=== PATIENT | female | born 1990 | race Hispanic/Latino ===

== ENCOUNTER 2019-08-26 18:35 | Emergency (ER) | payer BC, OTHER ==
[2019-08-26 19:57] LABS: Urine Blood 3+ (NEG); Urine Glucose NEGATIVE (NEG); Urine Protein 2+ (NEG); Urine Specific Gravity 1.025 (1.005-1.030)
[2019-08-26 21:41] LABS: Urine Bacteria >50 /HPF (<20); Urine Culture Reflex Order NOT NEEDED; Urine Mucus HEAVY /HPF (NONE SEEN); Urine RBC TNTC /HPF (NONE SEEN)
[2019-08-26 21:53] LABS: Absolute Lymphocytes (CBC) 1.3 K/uL (0.7-4.9); Basophils % 0.2 % (0-1.3); Hematocrit 41.1 % (36.0-45.0); Lymphocytes % 13.9 % (15.3-44.8); MPV 10.8 fL (7.6-11.3); RBC Red Blood Cell Count 4.38 M/uL (3.86-4.86)
[2019-08-26 22:20] LABS: BUN Blood Urea Nitrogen 8 mg/dL (7-18); Bicarbonate 23 mmol/L (21-32); Glucose Level 101 mg/dL (74-106); HCG, Quantitative 25835 mIU/mL (1-3); Potassium 3.7 mmol/L (3.5-5.1); Sodium Level 140 mmol/L (136-145)
--- NOTE | 2019-08-26 23:48 | EDPHYS ---
Physician Documentation [facility] Name: Christopher Phipps Age: 29 yrs Sex: Female : 1990 Arrival Date: 08/26/2019 Time: 18:38 Bed 6 Private MD: ED Physician Hernesto Ybarra HPI: 08/25 20:56 This 29 yrs old Female presents to ER via Ambulatory with complaints of Back mh7 Pain, Pelvic Pain, 18 wks Preg. 20:57 The patient complains of pain in the left flank. The pain radiates to the pelvis. mh7 Onset: The symptoms/episode began/occurred today. Modifying factors: The symptoms are alleviated by nothing. the symptoms are aggravated by nothing. Associated signs and symptoms: Pertinent negatives: diarrhea, dizziness, dysuria, fever, urinary frequency, headache, hematuria, nausea, pain radiating to the lower extremities, vomiting. Severity of pain: At its worst the pain was moderate today, in the emergency department the pain has improved markedly. 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 - Social history:: Smoking status: Patient denies any tobacco usage or history of. ROS: 20:57 Constitutional: Negative for fever, chills, and weight loss, Eyes: Negative for injury, mh7 pain, redness, and discharge, ENT: Negative for injury, pain, and discharge, Neck: Negative for injury, pain, and swelling, Cardiovascular: Negative for chest pain, palpitations, and edema, Respiratory: Negative for shortness of breath, cough, wheezing, and pleuritic chest pain, : Negative for injury, bleeding, discharge, and swelling, MS/Extremity: Negative for injury and deformity, Skin: Negative for injury, rash, and discoloration, Neuro: Negative for headache, weakness, numbness, tingling, and seizure, Psych: Negative for depression, anxiety, suicide ideation, homicidal ideation, and hallucinations, Allergy/Immunology: Negative for hives, rash, and allergies, Endocrine: Negative for neck swelling, polydipsia, polyuria, polyphagia, and marked weight changes, Hematologic/Lymphatic: Negative for swollen nodes, abnormal bleeding, and unusual bruising. Exam: 20:57 Constitutional: This is a well developed, well nourished patient who is awake, alert, mh7 and in no acute distress. Head/Face: Normocephalic, atraumatic. Eyes: Pupils equal round and reactive to light, extra-ocular motions intact. Lids and lashes normal. Conjunctiva and sclera are non-icteric and not injected. Cornea within normal limits. Periorbital areas with no swelling, redness, or edema. ENT: Nares patent. No nasal discharge, no septal abnormalities noted. Tympanic membranes are normal and external auditory canals are clear. Oropharynx with no redness, swelling, or masses, exudates, or evidence of obstruction, uvula midline. Mucous membranes moist. Neck: Trachea midline, no thyromegaly or masses palpated, and no cervical lymphadenopathy. Supple, full range of motion without nuchal rigidity, or vertebral point tenderness. No Meningismus. Chest/axilla: Normal chest wall appearance and motion. Nontender with no deformity. No lesions are appreciated. Cardiovascular: Regular rate and rhythm with a normal S1 and S2. No gallops, murmurs, or rubs. Normal PMI, no JVD. No pulse deficits. Respiratory: Lungs have equal breath sounds bilaterally, clear to auscultation and percussion. No rales, rhonchi or wheezes noted. No increased work of breathing, no retractions or nasal flaring. Abdomen/GI: Soft, non-tender, with normal bowel sounds. No distension or tympany. No guarding or rebound. No evidence of tenderness throughout. 20:57 Skin: Warm, dry with normal turgor. Normal color with no rashes, no lesions, and no evidence of cellulitis. MS/ Extremity: Pulses equal, no cyanosis. Neurovascular intact. Full, normal range of motion. Neuro: Awake and alert, GCS 15, oriented to person, place, time, and situation. Cranial nerves II-XII grossly intact. Motor strength 5/5 in all extremities. Sensory grossly intact. Cerebellar exam normal. Normal gait. Psych: Awake, alert, with orientation to person, place and time. Behavior, mood, and affect are within normal limits. 20:57 Back: pain, is absent, ROM is normal, normal spinal alignment noted, CVA tenderness, that is mild, is noted on the left, muscle spasm, is not present. 20:57 : CVA tenderness, on the left, Pelvic Exam: The exam is refused by the patient/guardian. The risks and consequences are understood by the patient, Bladder: is normal. Vital Signs: 19:06 BP 102 / 72; Pulse 75; Resp 16 S; Temp 97.3(TE); Pulse Ox 100% on R/A; Weight 64.41 kg ca1 (R); Height 5 ft. 1 in. (154.94 cm) (R); Pain 6/10; 20:30 BP 115 / 78; Pulse 80; Resp 17; Pulse Ox 99% ; rr5 21:30 BP 106 / 61; Pulse 75; Resp 19; Pulse Ox 100% ; rr5 22:14 BP 110 / 85; Pulse 81; Resp 18; Pulse Ox 100% on R/A; rv 23:30 BP 114 / 70; Pulse 79; Resp 17; Temp 98; Pulse Ox 98% ; rr5 19:06 Body Mass Index 26.83 (64.41 kg, 154.94 cm) ca1 MDM: 20:45 Patient medically screened. [facility] 23:46 Differential diagnosis: nephrolithiasis, pyelonephritis, UTI. Data reviewed: [facility] signs, nurses notes, lab test result(s), Beta HCG: CBC, electrolytes, Rh: urinalysis. Data interpreted: Pulse oximetry: on room air is 100 %. Interpretation: normal. Counseling: I had a detailed discussion with the patient and/or guardian regarding: the historical points, exam findings, and any diagnostic results supporting the discharge/admit diagnosis, lab results, radiology results, the need for outpatient follow up, to return to the emergency department if symptoms worsen or persist or if there are any questions or concerns that arise at home. Response to treatment: the patient's symptoms have resolved after treatment, the patient's blood pressure is in an acceptable range, mental status has returned to baseline, the patient no longer shows bradycardia, the patient is not short of breath, the patient is not tachycardic, the patient's pain is gone, the patient's temperature has normalized. 08/25 18:40 Order name: Urine Culture snw 08/25 18:40 Order name: Urine Microscopic Only; Complete Time: 21:44 [facility] 08/25 19:51 Order name: Urine --Ancillary (enter results); Complete Time: 20:45 08/25 19:51 Order name: Urine Dipstick--Ancillary (enter results); Complete Time: 20:45 08/25 20:47 Order name: CBC with Diff; Complete Time: 22:29 [facility] 08/25 18:40 Order name: Urine Test (obtain specimen); Complete Time: 20:26 [facility] 08/25 18:40 Order name: Urine Dipstick-Ancillary (obtain specimen); Complete Time: 20:26 [facility] 08/25 20:47 Order name: Basic Metabolic Panel; Complete Time: 22:29 08/25 20:47 Order name: Quantitative Hcg; Complete Time: 22:29 [facility] 08/25 20:47 Order name: US OB Limited [facility] 08/25 20:47 Order name: US Abdomen Limited [facility] 08/25 20:48 Order name: Abo/rh Typing; Complete Time: 22:29 [facility] 08/25 21:04 Order name: GC (Micheal/Chl) Probe URINE EDMS Administered Medications: No medications were administered Disposition: 08/26/19 23:47 Discharged to Home. Impression: Flank Pain, . - Condition is Stable. - Discharge Instructions: Abdominal Pain During , [id number], Flank Pain, [id number]. - Medication Reconciliation Form, Thank You Letter, Antibiotic Education, Prescription Opioid Use form. - Follow up: Private Physician; When: 2 - 3 days; Reason: Worsening of condition, Recheck today's complaints, Re-evaluation by your physician. - Problem is an acute exacerbation. - Symptoms are resolved. Signatures: Dispatcher [employer] EDMS Phyllis Clark, SIENE MAKER-C SIENE MAKER-Csnw David Alatorre RN RN rr5 Mary Mann RN RN ca1 Hernesto Ybarra MD MD mh7 Corrections: (The following items were deleted from the chart) 21:04 18:41 GC (Gonorr/Clamydia) Probe+R.LAB.BRZ ordered. EDMS EDMS 23:59 23:47 08/26/2019 23:47 Discharged to Home. Impression: Flank Pain; . Condition rr5 is Stable. Forms are Medication Reconciliation Form, Thank You Letter, Antibiotic Education, Prescription Opioid Use. Follow up: Private Physician; When: 2 - 3 days; Reason: Worsening of condition, Recheck today's complaints, Re-evaluation by your physician. Problem is an acute exacerbation. Symptoms are resolved. mh7
--- NOTE | 2019-08-26 23:48 | ER ---
Nurse's Notes [facility] Name: Christopher Phipps Age: 29 yrs Sex: Female : 1990 Arrival Date: 08/26/2019 Time: 18:38 Bed 6 Private MD: Diagnosis: Flank Pain; Presentation: 08/25 19:06 Chief complaint: Patient states: Pain from Lower left side of my back that goes to the ca1 front . And I having sharp pain underneath my belly button area down to my vaginal area. My OB told me to come to the ER. 18 wks and 4 days. Denies vaginal bleeding. Denies urinary symptoms. 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 Coronavirus screen: Proceed with normal triage. Patient denies a cough. Patient denies shortness of breath or difficulty breathing. Patient denies measured and/or subjective temperature greater than 100.4F prior to today's visit. Patient denies travel on a cruise ship or to a country the [facility] currently lists as an affected area. Patient denies contact with known and/or suspected case of COVID-19. Ebola Screen: Patient negative for fever greater than or equal to 101.5 degrees Fahrenheit, and additional compatible Ebola Virus Disease symptoms Patient denies exposure to infectious person. Patient denies travel to an Ebola-affected area in the 21 days before illness onset. No symptoms or risks identified at this time. Initial Sepsis Screen: Does the patient meet any 2 criteria? No. Patient's initial sepsis screen is negative. Does the patient have a suspected source of infection? No. Patient's initial sepsis screen is negative. Risk Assessment: Do you want to hurt yourself or someone else? Patient reports no desire to harm self or others. Onset of symptoms was August 26, 2019. 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 - Social history:: Smoking status: Patient denies any tobacco usage or history of. Screenin:41 Abuse screen: Denies threats or abuse. Denies injuries from another. Nutritional rr5 screening: No deficits noted. Tuberculosis screening: No symptoms or risk factors identified. Fall Risk None identified. Total Rivera Fall Scale indicates No Risk (0-24 pts). Assessment: 20:10 General: Appears in no apparent distress. uncomfortable, Behavior is calm, cooperative, rr5 appropriate for age. 20:10 Pain: Complains of pain in pelvis Pain radiates to left flank Pain currently is 6 out rr5 of 10 on a pain scale. Quality of pain is described as sharp, stabbing, Pain began gradually, Is intermittent. Neuro: Level of Consciousness is awake, alert, obeys commands, Oriented to person, place, time, situation. Cardiovascular: Capillary refill < 3 seconds Patient's skin is warm and dry. Respiratory: Airway is patent Respiratory effort is even, unlabored, Respiratory pattern is regular, symmetrical. GI: No signs and/or symptoms were reported involving the gastrointestinal system. : Reports pain in left flank(s), pelvic area. EENT: No signs and/or symptoms were reported regarding the EENT system. Derm: Skin is intact, is healthy with good turgor, Skin temperature is warm. Musculoskeletal: Circulation, motion, and sensation intact. Capillary refill < 3 seconds. 20:41 Reassessment: Patient appears in no apparent distress at this time. Patient is alert, rr5 oriented x 3, equal unlabored respirations, skin warm/dry/pink. awaiting for results. 21:15 Reassessment: Patient appears in no apparent distress at this time. ultrasound at rr5 bedside. 22:33 Reassessment: Patient appears in no apparent distress at this time. Patient is alert, rr5 oriented x 3, equal unlabored respirations, skin warm/dry/pink. no complaints made. 23:41 Reassessment: Patient appears in no apparent distress at this time. Patient is alert, rr5 oriented x 3, equal unlabored respirations, skin warm/dry/pink. awaiting for ultrasound result. 23:59 Reassessment: Patient appears in no apparent distress at this time. discharge rr5 instruction given and explained without complaints made. Vital Signs: 19:06 BP 102 / 72; Pulse 75; Resp 16 S; Temp 97.3(TE); Pulse Ox 100% on R/A; Weight 64.41 kg ca1 (R); Height 5 ft. 1 in. (154.94 cm) (R); Pain 6/10; 20:30 BP 115 / 78; Pulse 80; Resp 17; Pulse Ox 99% ; rr5 21:30 BP 106 / 61; Pulse 75; Resp 19; Pulse Ox 100% ; rr5 22:14 BP 110 / 85; Pulse 81; Resp 18; Pulse Ox 100% on R/A; rv 23:30 BP 114 / 70; Pulse 79; Resp 17; Temp 98; Pulse Ox 98% ; rr5 19:06 Body Mass Index 26.83 (64.41 kg, 154.94 cm) ca1 ED Course: 18:38 Patient arrived in ED. ag5 19:09 Triage completed. ca1 19:10 Arm band placed on right wrist. ca1 20:29 Hernesto Ybarra MD is Attending Physician. mh7 20:30 David Alatorre RN is Primary Nurse. rr5 20:30 Pulse ox on. NIBP on. rr5 20:32 Urine Culture Sent. ca1 20:32 Urine Microscopic Only Sent. ca1 21:40 US OB Limited In Process Unspecified. EDMS 21:40 US Abdomen Limited In Process Unspecified. EDMS 21:40 Inserted saline lock: 20 gauge in right hand, using aseptic technique. Blood collected. rr5 22:38 Patient has correct armband on for positive identification. Bed in low position. Call rr5 light in reach. 23:55 IV discontinued, intact, bleeding controlled, No redness/swelling at site. Pressure rr5 dressing applied. 08/26 00:23 No provider procedures requiring assistance completed. rr5 Administered Medications: No medications were administered Outcome: 08/25 23:47 Discharge ordered by . mh7 23:55 Discharged to home ambulatory. rr5 23:55 Condition: stable 23:55 Discharge instructions given to patient, Instructed on discharge instructions, follow rr5 up and referral plans. Demonstrated understanding of instructions, follow-up care. 23:59 Patient left the ED. rr5 Signatures: Dispatcher [employer] EDMS Leno Maier RN RN rv David Alatorre RN RN rr5 Mary Mann RN RN ca1 Cyrus Lima ag5 Ybarra, Hernesto, MD MD mh7
[2019-08-27 01:14] VITALS: TEMP 97.3; O2SAT 100
[2019-08-27 01:23] VITALS: BP 110/85
--- NOTE | 2019-08-27 10:52 | RAD REPORT ---
EXAM DESCRIPTION: US - OB Limited - 08/26/2019 9:39 pm CLINICAL HISTORY: ABD PAIN age. COMPARISON: No comparisons FINDINGS: A limited obstetrical ultrasound was requested. A single transverse presenting gestation is identified. Heart rate normal. Estimated age is 18 weeks 4 days, ARIANNA 01/23/2020. Cervix is long and closed. Anterior placenta without evidence of placen ta previa or abruption. Normal amniotic fluid volume.
--- NOTE | 2019-08-28 10:58 | RAD REPORT ---
EXAM DESCRIPTION: Abdomen Exam Limited CLINICAL HISTORY: FLANK PAIN COMPARISON: None. TECHNIQUE: Real-time sonographic images of the right upper abdomen were obtained using a curved mult ihertz transducer. FINDINGS: Pancreas: Not well visualized due to overlying structures. Vascular: Not well-visualized due to overlying structures. Liver: The liver has normal contour and echogenicity. Hepatopedal flow in the portal vein. Findings confirmed with color and spectral Doppler imaging. The common bile duct measures 0.2 cm. Gallbladder: The gallbladder has a normal appearance. No gallstones identified. No wall thickening or pericholecystic fluid. Kidneys: The right kidney measures 10.8 cm in length. The left kidney measures 11.5 cm in length and moderate right and minimal left hydronephrosis. IMPRESSION: 1. Moderate right and minimal left hydronephrosis. Electronically signed by: Papito Blum 08/26/2019 10:13 PM CDT Due to temporary technical issues with the PACS/Fluency reporting system, reports are being signed by the in house radiologist without review as a courtesy to ensure prompt reporting. The interpreting r adiologist is fully responsible for the content of the report.
[2019-08-31 13:37] LABS: C.trachomatis RNA,TMA Not Detected (Not Detected)
== END 2019-08-26 23:59 | disposition home or self-care (01) ==
LOC: ER 18:35
DX: O26.892 Other specified pregnancy related conditions, second trimester (principal); Z88.0 Allergy status to penicillin; R10.9 Unspecified abdominal pain
CPT/HCPCS: 36415; 76705; 76815; 80048; 81003; 81015; 81025; 84702; 85025; 86900; 86901; 87086; 87088; 87490; 87590; 99284